=== PATIENT | male | born 1970 | race Caucasian/White ===

== ENCOUNTER 2017-04-20 18:18 | Emergency (ER) | payer BC ==
[2017-04-20 18:48] VITALS: BP 132/85
--- NOTE | 2017-04-20 18:57 | EDM.PDOC ---
ED HPI GENERAL MEDICAL PROBLEM - General Chief Complaint: General Stated Complaint: CHILLS/ILLNESS/CANCER PATIENT Time Seen by Provider: 04/20/17 18:56 Source of Information: Reports: Patient History Limitations: Reports: No Limitations - History of Present Illness INITIAL COMMENTS - FREE TEXT/NARRATIVE: Sx since yesterday. no other c/o - Related Data Allergies Allergy/AdvReac Type Severity Reaction Status Date / Time levofloxacin Allergy Rash Verified 04/20/17 18:41 Home Meds: Home Meds . [No Known Home Meds] 04/20/17 [History] Past Medical History HEENT History: Reports: Impaired Vision Other HEENT History: wears glasses Cardiovascular History: Reports: None Respiratory History: Reports: None Gastrointestinal History: Reports: None Genitourinary History: Reports: UTI, Recurrent Musculoskeletal History: Reports: None Neurological History: Reports: None Psychiatric History: Reports: None Endocrine/Metabolic History: Reports: None Hematologic History: Reports: None Immunologic History: Reports: None Oncologic (Cancer) History: Reports: Lymphoma Dermatologic History: Reports: None - Infectious Disease History Infectious Disease History: Reports: None - Past Surgical History Head Surgeries/Procedures: Reports: None Social & Family History - Family History Family Medical History: Noncontributory - Tobacco Use Smoking Status *Q: Never Smoker Second Hand Smoke Exposure: No - Caffeine Use Caffeine Use: Reports: Soda - Alcohol Use Days Per Week of Alcohol Use: 1 Number of Drinks Per Day: 1 Total Drinks Per Week: 1 - Recreational Drug Use Recreational Drug Use: No ED ROS GENERAL - Review of Systems Review Of Systems: ROS reveals no pertinent complaints other than HPI. ED EXAM, GENERAL - Physical Exam Exam: See Below Exam Limited By: No Limitations General Appearance: Alert, WD/WN, No Apparent Distress Ears: Normal External Exam, Normal Canal, Hearing Grossly Normal, Normal TMs Nose: Normal Inspection Throat/Mouth: Inflammation Head: Atraumatic Neck: Non-Tender, Full Range of Motion Respiratory/Chest: No Respiratory Distress, Lungs Clear, Normal Breath Sounds, No Accessory Muscle Use Cardiovascular: Regular Rate, Rhythm GI/Abdominal: Soft, Non-Tender Neurological: Alert, Oriented, Normal Cognition, Normal Gait, No Motor/Sensory Deficits Psychiatric: Normal Affect, Normal Mood Skin Exam: Warm, Dry Lymphatic: No Adenopathy Course - Vital Signs Last Recorded V/S: Last Vital Signs Temp 35.6 C 04/20/17 18:47 Pulse 84 04/20/17 18:47 Resp 18 04/20/17 18:47 BP 132/85 04/20/17 18:47 Pulse Ox 98 04/20/17 18:47 - Orders/Labs/Meds Orders: Active Orders 24 hr Category Date Time Status CULTURE BLOOD [BC] Stat Lab 04/20/17 19:05 Received CULTURE STREP A CONFIRMATION [] Stat Lab 04/20/17 18:53 Results STREP SCRN A RAPID W CULT CONF [] Stat Lab 04/20/17 18:53 Results Labs: Laboratory Tests 04/20/17 04/20/17 04/20/17 Range/Units 19:05 19:05 19:05 WBC 5.0 (5.0-10.0) 10^3/uL RBC 4.92 (4.6-6.2) 10^6/uL Hgb 15.5 (14.0-18.0) g/dL Hct 42.4 (40.0-54.0) % MCV 86.2 (80-100) fL MCH 31.5 (27.0-34.0) pg MCHC 36.6 H (33.0-35.0) g/dL Plt Count 157 (150-450) 10^3/uL Neut % (Auto) 75.8 H (42.2-75.2) % Lymph % (Auto) 7.1 L (20.5-50.1) % [place] % (Auto) 15.1 H (2-8) % Eos % (Auto) 1.6 (1.0-3.0) % Baso % (Auto) 0.4 (0.0-1.0) % Add Manual Diff Yes Neutrophils % (Manual) 76 % Band Neutrophils % 4 % Lymphocytes % (Manual) 5 % Atypical Lymphs % 0 % Monocytes % (Manual) 9 % Eosinophils % (Manual) 6 % Basophils % (Manual) 0 Sodium 141 (135-145) mmol/L Potassium 4.2 (3.6-5.0) mmol/L Chloride 108 (101-111) mmol/L Carbon Dioxide 23.0 (21.0-31.0) mmol/L Anion Gap 14.2 BUN 16 (7-18) mg/dL Creatinine 1.3 (0.6-1.3) mg/dL Est Cr Clr Drug Dosing TNP Estimated GFR (MDRD) 59 BUN/Creatinine Ratio 12.30 Glucose 131 H (74-105) mg/dL Lactic Acid 1.4 (0.5-2.2) mmol/L Calcium 9.1 (8.4-10.2) mg/dl Total Bilirubin 0.9 (0.2-1.0) mg/dL AST 30 (10-42) IU/L ALT 39 (10-60) IU/L Alkaline Phosphatase 88 (42-121) IU/L Total Protein 6.5 L (6.7-8.2) g/dl Albumin 4.2 (3.2-5.5) g/dl Globulin 2.3 Albumin/Globulin Ratio 1.83 Meds: Medications Discontinued Medications Generic Name Dose Route Start Last Admin Trade Name Santiagoq PRN Reason Stop Dose Admin Amoxicillin 500 mg 04/20/17 20:08 Amoxil PO 04/20/17 20:09 ONETIME ONE - Re-Assessments/Exams Free Text/Narrative Re-Assessment/Exam: 04/20/17 20:09 results discussed with Pt who states last time this occurred was given ABX. Departure - Departure Time of Disposition: 20:10 Disposition: Home, Self-Care 01 Condition: Good Clinical Impression: Cancer, Post chemo evaluation - Discharge Information Forms: ED Department Discharge Additional Instructions: 1) rest 2) continue tylenol or motrin for fever 3) notify [facility] in the morning 4) recheck if there is changes or concerns rx given; amoxil 250mg tid x 30 - My Orders Last 24 Hours: My Active Orders 04/20/17 18:53 CULTURE STREP A CONFIRMATION [RM] Stat STREP SCRN A RAPID W CULT CONF [RM] Stat 04/20/17 19:05 CULTURE BLOOD [BC] Stat - Assessment/Plan Last 24 Hours: My Active Orders 04/20/17 18:53 CULTURE STREP A CONFIRMATION [RM] Stat STREP SCRN A RAPID W CULT CONF [RM] Stat 04/20/17 19:05 CULTURE BLOOD [BC] Stat
[2017-04-20 19:30] LABS: CHLORIDE,CL 108 mmol/L (101-111); SODIUM,NA 141 mmol/L (135-145)
[2017-04-20] MEDS ORDERED: Amoxicillin 500 MG Cap PO ONE (20:08)
== END 2017-04-20 20:21 | disposition home or self-care (01) ==
LOC: DL.ED 18:18
DX: C85.90 Non-Hodgkin lymphoma, unspecified, unspecified site (principal)
CPT/HCPCS: 36415; 80053; 83605; 85025; 87040; 87081; 87430; 99283; A9270

== ENCOUNTER 2017-05-18 22:06 | Emergency (ER) | payer BC ==
[2017-05-18 22:13] VITALS: BP 130/78
--- NOTE | 2017-05-18 23:45 | EDM.PDOC ---
[id number] 2d CHILLS AND FEVER, HAS LYMPHOMA, [id number] Time Seen by Provider: 05/18/17 22:20 History Limitations: Reports: No Limitations - History of Present Illness INITIAL COMMENTS - FREE TEXT/NARRATIVE: cold sx since Monday, worsening cough congestion, Febrile tonight 100.9, Hx lymphoma, last chemo 5 weeks ago. Decreased appetite .Patient contacted primary oncologist at [facility] and was told to go to ED if temp continued. - Related Data Allergies Allergy/AdvReac Type Severity Reaction Status Date / Time levofloxacin Allergy Rash Verified 05/18/17 22:11 Home Meds: Home Meds . [No Known Home Meds] 04/20/17 [History] Past Medical History HEENT History: Reports: Impaired Vision Other HEENT History: wears glasses Cardiovascular History: Reports: None Respiratory History: Reports: None Gastrointestinal History: Reports: None Genitourinary History: Reports: UTI, Recurrent Musculoskeletal History: Reports: None Neurological History: Reports: None Psychiatric History: Reports: None Endocrine/Metabolic History: Reports: None Hematologic History: Reports: None Immunologic History: Reports: None Oncologic (Cancer) History: Reports: Lymphoma Dermatologic History: Reports: None - Infectious Disease History Infectious Disease History: Reports: None - Past Surgical History Head Surgeries/Procedures: Reports: None Social & Family History - Family History Family Medical History: Noncontributory - Tobacco Use Smoking Status *Q: Never Smoker Second Hand Smoke Exposure: No - Caffeine Use Caffeine Use: Reports: Soda - Alcohol Use Days Per Week of Alcohol Use: 1 Number of Drinks Per Day: 1 Total Drinks Per Week: 1 - Recreational Drug Use Recreational Drug Use: No ED ROS ENT - Review of Systems Review Of Systems: See Below Constitutional: Reports: Fever, Chills, Fatigue HEENT: Reports: Sinus Problem, Throat Pain Respiratory: Reports: Cough. Denies: Shortness of Breath Cardiovascular: Reports: No Symptoms GI/Abdominal: Reports: No Symptoms : Reports: No Symptoms Musculoskeletal: Reports: No Symptoms Skin: Reports: No Symptoms Neurological: Reports: No Symptoms ED EXAM, ENT - Physical Exam Exam: See Below Exam Limited By: No Limitations General Appearance: Alert, Mild Distress Eye Exam: Bilateral Eye: EOMI Ears: Normal External Exam, Normal TMs. No: TM Fluid Nose: Normal Inspection, Normal Mucousa. No: Nasal Tenderness Mouth/Throat: Normal Inspection, Normal Gums, Normal Oropharynx, Pharyngeal Erythema Head: Atraumatic, Normocephalic, Scalp Swelling Respiratory/Chest: No Respiratory Distress, Lungs Clear, Normal Breath Sounds Cardiovascular: Normal Peripheral Pulses, Regular Rate, Rhythm, No Edema GI/Abdominal: Normal Bowel Sounds Back: Normal Inspection Neurological: Alert, Oriented, Normal Cognition, Normal Gait, Normal Reflexes Psychiatric: Normal Affect, Normal Mood Skin: Warm, Dry, Intact, Normal Color, No Rash Course - Vital Signs Last Recorded V/S: Last Vital Signs Temp 99.8 F 05/18/17 22:12 Pulse 100 05/18/17 22:12 Resp 21 H 05/18/17 22:12 BP 130/78 05/18/17 22:12 Pulse Ox 97 05/18/17 22:12 - Orders/Labs/Meds Orders: Active Orders 24 hr Category Date Time Status CULTURE BLOOD [BC] Stat Lab 05/18/17 22:20 Received CULTURE BLOOD [BC] Stat Lab 05/18/17 22:25 Results CULTURE URINE [RM] Stat Lab 05/18/17 22:29 Received Blood Culture x2 Reflex Set [OM.PC] Stat Oth 05/18/17 22:09 Ordered Labs: Laboratory Tests 05/18/17 05/18/17 05/18/17 Range/Units 22:20 22:20 22:20 WBC 8.1 (5.0-10.0) 10^3/uL RBC 4.66 (4.6-6.2) 10^6/uL Hgb 14.7 (14.0-18.0) g/dL Hct 40.5 (40.0-54.0) % MCV 86.9 (80-100) fL MCH 31.5 (27.0-34.0) pg MCHC 36.3 H (33.0-35.0) g/dL Plt Count 172 (150-450) 10^3/uL Neut % (Auto) 70.4 (42.2-75.2) % Lymph % (Auto) 9.6 L (20.5-50.1) % [place] % (Auto) 17.6 H (2-8) % Eos % (Auto) 2.2 (1.0-3.0) % Baso % (Auto) 0.2 (0.0-1.0) % Sodium 141 (135-145) mmol/L Potassium 3.6 (3.6-5.0) mmol/L Chloride 106 (101-111) mmol/L Carbon Dioxide 24.0 (21.0-31.0) mmol/L Anion Gap 14.6 BUN 13 (7-18) mg/dL Creatinine 1.4 H (0.6-1.3) mg/dL Est Cr Clr Drug Dosing 72.92 mL/min Estimated GFR (MDRD) 54 BUN/Creatinine Ratio 9.28 Glucose 117 H (74-105) mg/dL Lactic Acid 0.9 (0.5-2.2) mmol/L Calcium 9.1 (8.4-10.2) mg/dl Total Bilirubin 1.1 H (0.2-1.0) mg/dL AST 87 H (10-42) IU/L ALT 89 H (10-60) IU/L Alkaline Phosphatase 151 H (42-121) IU/L Total Protein 7.1 (6.7-8.2) g/dl Albumin 4.2 (3.2-5.5) g/dl Globulin 2.9 Albumin/Globulin Ratio 1.45 Urine Color (YELLOW) Urine Appearance (CLEAR) Urine pH (5.0-9.0) Ur Specific [place] (1.005-1.030) Urine Protein (NEGATIVE) Urine Glucose (UA) (NEGATIVE) Urine Ketones (NEGATIVE) Urine Occult Blood (NEGATIVE) Urine Nitrite (NEGATIVE) Urine Bilirubin (NEGATIVE) Urine Urobilinogen (0.2-1.0) mg/dL Ur Leukocyte Esterase (NEGATIVE) Urine RBC /HPF Urine WBC (0-5/HPF) /HPF Ur Epithelial Cells /HPF Urine Bacteria (0-FEW/HPF) /HPF // Range/Units 22:29 WBC (5.0-10.0) 10^3/uL RBC (4.6-6.2) 10^6/uL Hgb (14.0-18.0) g/dL Hct (40.0-54.0) % MCV (80-100) fL MCH (27.0-34.0) pg MCHC (33.0-35.0) g/dL Plt Count (150-450) 10^3/uL Neut % (Auto) (42.2-75.2) % Lymph % (Auto) (20.5-50.1) % [place] % (Auto) (2-8) % Eos % (Auto) (1.0-3.0) % Baso % (Auto) (0.0-1.0) % Sodium (135-145) mmol/L Potassium (3.6-5.0) mmol/L Chloride (101-111) mmol/L Carbon Dioxide (21.0-31.0) mmol/L Anion Gap BUN (7-18) mg/dL Creatinine (0.6-1.3) mg/dL Est Cr Clr Drug Dosing mL/min Estimated GFR (MDRD) BUN/Creatinine Ratio Glucose (74-105) mg/dL Lactic Acid (0.5-2.2) mmol/L Calcium (8.4-10.2) mg/dl Total Bilirubin (0.2-1.0) mg/dL AST (10-42) IU/L ALT (10-60) IU/L Alkaline Phosphatase (42-121) IU/L Total Protein (6.7-8.2) g/dl Albumin (3.2-5.5) g/dl Globulin Albumin/Globulin Ratio Urine Color Yellow (YELLOW) Urine Appearance Clear (CLEAR) Urine pH 7.0 (5.0-9.0) Ur Specific [place] 1.015 (1.005-1.030) Urine Protein Negative (NEGATIVE) Urine Glucose (UA) Negative (NEGATIVE) Urine Ketones Trace H (NEGATIVE) Urine Occult Blood Negative (NEGATIVE) Urine Nitrite Negative (NEGATIVE) Urine Bilirubin Negative (NEGATIVE) Urine Urobilinogen 1.0 (0.2-1.0) mg/dL Ur Leukocyte Esterase Negative (NEGATIVE) Urine RBC 0-5 /HPF Urine WBC 0-5 (0-5/HPF) /HPF Ur Epithelial Cells Few /HPF Urine Bacteria Few (0-FEW/HPF) /HPF Meds: Medications Discontinued Medications Generic Name Dose Route Start Last Admin Trade Name Freq PRN Reason Stop Dose Admin Amoxicillin/Clavulanate Potassium Confirm 05/18/17 23:48 05/19/17 00:14 Augmentin 875 Mg/125 Mg Administered 05/18/17 23:49 Not Given Dose 2 tab .ROUTE .STK-MED ONE - Radiology Interpretation Free Text/Narrative:: CXR possible atelectasis vs infiltrate Departure - Departure Time of Disposition: 23:40 Disposition: Home, Self-Care 01 Condition: Fair Clinical Impression: URI, acute, Immunocompromised patient Sinusitis Qualifiers: Sinusitis location: unspecified location Chronicity: unspecified Qualified Code (s): J32.9 - Chronic sinusitis, unspecified Lymphoma Qualifiers: Lymphoma type: unspecified type Lymphoma site: unspecified region Qualified Code(s): C85.90 - Non-Hodgkin lymphoma, unspecified, unspecified site - Discharge Information Referrals: PCP,None [Primary Care Provider] - Forms: ED Department Discharge Additional Instructions: push fluids rest tylenol for fever greater than 101 Augmentin 875/125 one twice daily for one week Continue Muccinex Follow up with PCP and oncologist in am. - My Orders Last 24 Hours: My Active Orders 05/18/17 22:09 Blood Culture x2 Reflex Set [OM.PC] Stat 05/18/17 22:20 CULTURE BLOOD [BC] Stat 05/18/17 22:25 CULTURE BLOOD [BC] Stat 05/18/17 22:29 CULTURE URINE [RM] Stat - Assessment/Plan Last 24 Hours: My Active Orders 05/18/17 22:09 Blood Culture x2 Reflex Set [OM.PC] Stat 05/18/17 22:20 CULTURE BLOOD [BC] Stat 05/18/17 22:25 CULTURE BLOOD [BC] Stat 05/18/17 22:29 CULTURE URINE [RM] Stat
[2017-05-18] MEDS ORDERED: Amoxicillin/Clavulanate K 875-125 MG Tab PO ONE (23:48)
[2017-05-18] MEDS ORDERED: Amoxicillin/Clavulanate K 875-125 MG Tab ONE (23:48)
== END 2017-05-18 23:55 | disposition home or self-care (01) ==
LOC: DL.ED 22:06
DX: J06.9 Acute upper respiratory infection, unspecified (principal); D89.9 Disorder involving the immune mechanism, unspecified; Z88.1 Allergy status to other antibiotic agents
CPT/HCPCS: 36415; 71020; 80053; 81001; 83605; 85025; 87040; 87081; 87086; 87430; 99284; A9270

== ENCOUNTER 2018-01-27 14:23 | Emergency (ER) | payer BC ==
[2018-01-27 14:35] VITALS: BP 134/81
--- NOTE | 2018-01-27 16:14 | EDM.PDOC ---
Scribed by Eula Maurer 01/27/18 1513 for Talia Hansen NP ED HPI GENERAL MEDICAL PROBLEM - General Chief Complaint: Respiratory Problem Stated Complaint: cold [id number] Time Seen by Provider: 01/27/18 14:53 Source of Information: Reports: Patient, RN, RN Notes Reviewed History Limitations: Reports: No Limitations - History of Present Illness INITIAL COMMENTS - FREE TEXT/NARRATIVE: Patient presents to ER with complaint of sore throat, cough, headaches and congestion. He states he has had most symptoms all winter. He has had a sore throat since . He has had no body aches, chest pain, shortness of breath , fever, chills, nausea, vomiting and diarrhea. Patient has a history of lymphoma. He saw Dr. Beaver 1 month ago and given Claritin and antibiotics. Duration: Getting Worse Location: Reports: Generalized Quality: Reports: Ache Severity: Mild Improves with: Reports: None Worsens with: Reports: None Associated Symptoms: Reports: No Other Symptoms Throat Pain Score (Numeric/FACES): 4 - Related Data Allergies Allergy/AdvReac Type Severity Reaction Status Date / Time levofloxacin Allergy Rash Verified 01/27/18 14:34 Home Meds: Home Meds Loratadine [Claritin] 10 mg PO DAILY 01/27/18 [History] Past Medical History HEENT History: Reports: Impaired Vision Other HEENT History: wears glasses Cardiovascular History: Reports: None Respiratory History: Reports: None Gastrointestinal History: Reports: None Genitourinary History: Reports: UTI, Recurrent Musculoskeletal History: Reports: None Neurological History: Reports: None Psychiatric History: Reports: None Endocrine/Metabolic History: Reports: None Hematologic History: Reports: None Immunologic History: Reports: None Oncologic (Cancer) History: Reports: Lymphoma Dermatologic History: Reports: None - Infectious Disease History Infectious Disease History: Reports: None - Past Surgical History Head Surgeries/Procedures: Reports: None Social & Family History - Family History Family Medical History: Noncontributory - Tobacco Use Smoking Status *Q: Never Smoker Second Hand Smoke Exposure: No - Caffeine Use Caffeine Use: Reports: Soda - Alcohol Use Days Per Week of Alcohol Use: 1 Number of Drinks Per Day: 1 Total Drinks Per Week: 1 - Recreational Drug Use Recreational Drug Use: No ED ROS GENERAL - Review of Systems Review Of Systems: ROS reveals no pertinent complaints other than HPI. ED EXAM, GENERAL - Physical Exam Exam: See Below Exam Limited By: No Limitations General Appearance: Alert, WD/WN, No Apparent Distress Eye Exam: Bilateral Eye: Normal Inspection Ears: Normal External Exam, Normal Canal, Hearing Grossly Normal, Normal TMs Nose: Normal Inspection, Normal Mucosa, No Blood Throat/Mouth: Other (tonsils +2-3. ) Neck: Normal Inspection Respiratory/Chest: No Respiratory Distress, Lungs Clear, Normal Breath Sounds, No Accessory Muscle Use, Chest Non-Tender Cardiovascular: Normal Peripheral Pulses, Regular Rate, Rhythm, No Edema, No Gallop, No JVD, No Murmur, No Rub GI/Abdominal: Normal Bowel Sounds, Soft, Non-Tender, No Organomegaly, No Distention, No Abnormal Bruit, No Mass (Male) Exam: Deferred Rectal (Males) Exam: Deferred Back Exam: Normal Inspection, Full Range of Motion, NT Extremities: Normal Inspection, Normal Range of Motion, Non-Tender, Normal Capillary Refill, No Pedal Edema Neurological: Alert, Oriented, CN II-XII Intact, Normal Cognition, Normal Gait, Normal Reflexes, No Motor/Sensory Deficits Psychiatric: Normal Affect, Normal Mood Skin Exam: Warm, Dry, Intact, Normal Color, No Rash Lymphatic: No Adenopathy Course - Vital Signs Last Recorded V/S: Last Vital Signs Temp 95.8 F 01/27/18 14:29 Pulse 92 01/27/18 14:29 Resp 16 01/27/18 14:29 BP 134/81 01/27/18 14:29 Pulse Ox 96 01/27/18 14:29 - Orders/Labs/Meds Orders: Active Orders 24 hr Category Date Time Status CULTURE STREP A CONFIRMATION [] Stat Lab 01/27/18 14:40 Results STREP SCRN A RAPID W CULT CONF [] Stat Lab 01/27/18 14:40 Results Labs: Rapid strep: Negative. Departure - Departure Time of Disposition: 15:11 Disposition: Home, Self-Care 01 Condition: Fair Clinical Impression: Tonsillitis Sinusitis Qualifiers: Sinusitis location: unspecified location Chronicity: acute Recurrence: not specified as recurrent Qualified Code(s): J01.90 - Acute sinusitis, unspecified Pharyngitis Qualifiers: Pharyngitis/tonsillitis etiology: unspecified etiology Qualified Code(s): J02.9 - Acute pharyngitis, unspecified - Discharge Information Instructions: Tonsillitis, [id number], Sinusitis, Adult, [id number], Sinus Headache, [id number], Pharyngitis, [id number] Forms: ED Department Discharge Additional Instructions: RX: Benzonatate (tessalon perles), Clindamycin, Doxycycline Drink plenty of fluids Follow up with your primary care facility next week - My Orders Last 24 Hours: My Active Orders 01/27/18 14:40 CULTURE STREP A CONFIRMATION [RM] Stat STREP SCRN A RAPID W CULT CONF [RM] Stat - Assessment/Plan Last 24 Hours: My Active Orders 01/27/18 14:40 CULTURE STREP A CONFIRMATION [RM] Stat STREP SCRN A RAPID W CULT CONF [RM] Stat I have read and agree with the documentation that has been completed regarding this visit. By signing this record, I attest that the documentation was completed in my physical presence and is an accurate record of the encounter.
== END 2018-01-27 15:19 | disposition home or self-care (01) ==
LOC: DL.ED 14:23
DX: J03.90 Acute tonsillitis, unspecified (principal); J01.90 Acute sinusitis, unspecified; Z88.1 Allergy status to other antibiotic agents
CPT/HCPCS: 87081; 87430; 99283

== ENCOUNTER 2018-12-24 11:07 | Emergency (ER) | payer BC ==
[2018-12-24 11:26] VITALS: BP 116/64
--- NOTE | 2018-12-24 12:02 | EDM.PDOC ---
ED HPI GENERAL MEDICAL PROBLEM - General Chief Complaint: ENT Problem Stated Complaint: FEVER [id number] Time Seen by Provider: 12/24/18 11:50 Source of Information: Reports: Patient History Limitations: Reports: No Limitations - History of Present Illness INITIAL COMMENTS - FREE TEXT/NARRATIVE: This 48 yo male patient reports to the ED with a sore throat, body aches, and cough (greenish sputum) that started on 12/20/18. The patient reports he has been taking [id number] medications for temporary symptom relief. The patient has not been seen in the clinic for these symptoms at this time (no appointments available). The patient has a history of lymphoma and was at the [facility] last week (got several immunizations). Onset Date: 12/20/18 Duration: Constant, Getting Worse Location: Reports: Head, Neck, Chest Quality: Reports: Other Severity: Moderate Improves with: Reports: None Worsens with: Reports: None Associated Symptoms: Reports: cough w sputum, Fever/Chills, Other (body aches) Treatments TUB TENDER: Reports: Acetaminophen - Related Data Allergies Allergy/AdvReac Type Severity Reaction Status Date / Time levofloxacin Allergy Rash Verified 12/24/18 11:22 Home Meds: Home Meds Loratadine [Claritin] 10 mg PO PRN 01/27/18 [History] Past Medical History HEENT History: Reports: Impaired Vision Other HEENT History: wears glasses Cardiovascular History: Reports: None Respiratory History: Reports: None Gastrointestinal History: Reports: None Genitourinary History: Reports: UTI, Recurrent Musculoskeletal History: Reports: None Neurological History: Reports: None Psychiatric History: Reports: None Endocrine/Metabolic History: Reports: None Hematologic History: Reports: None Immunologic History: Reports: None Oncologic (Cancer) History: Reports: Lymphoma Dermatologic History: Reports: None - Infectious Disease History Infectious Disease History: Reports: None - Past Surgical History Head Surgeries/Procedures: Reports: None Social & Family History - Family History Family Medical History: Noncontributory - Tobacco Use Smoking Status *Q: Never Smoker Second Hand Smoke Exposure: No - Caffeine Use Caffeine Use: Reports: None - Recreational Drug Use Recreational Drug Use: No ED ROS GENERAL - Review of Systems Review Of Systems: ROS reveals no pertinent complaints other than HPI. ED EXAM, GENERAL - Physical Exam Exam: See Below Exam Limited By: No Limitations General Appearance: Alert, WD/WN, Moderate Distress Eye Exam: Bilateral Eye: EOMI, Normal Inspection, PERRL Ears: Normal External Exam, Normal Canal, Hearing Grossly Normal, Normal TMs Nose: Normal Inspection, Normal Mucosa, No Blood, Clear Rhinorrhea Throat/Mouth: Normal Lips, Normal Teeth, Normal Voice, No Airway Compromise, Other (Tonsils are erythematous) Head: Atraumatic, Normocephalic Neck: Normal Inspection, Supple, Full Range of Motion Respiratory/Chest: No Respiratory Distress, Lungs Clear, Normal Breath Sounds, No Accessory Muscle Use, Chest Non-Tender Cardiovascular: Normal Peripheral Pulses, Regular Rate, Rhythm, No Edema, No Gallop, No JVD, No Murmur, No Rub GI/Abdominal: Normal Bowel Sounds, Soft, Non-Tender, No Organomegaly, No Distention, No Abnormal Bruit, No Mass (Male) Exam: Deferred Rectal (Males) Exam: Deferred Back Exam: Normal Inspection, Full Range of Motion, NT Extremities: Normal Inspection, Normal Range of Motion, Non-Tender, Normal Capillary Refill, No Pedal Edema Neurological: Alert, Oriented, CN II-XII Intact, Normal Cognition, Normal Gait, Normal Reflexes, No Motor/Sensory Deficits Psychiatric: Normal Affect, Normal Mood Skin Exam: Warm, Dry, Intact, Normal Color, No Rash Lymphatic: No Adenopathy Course - Vital Signs Last Recorded V/S: Last Vital Signs Temp 37.0 C 12/24/18 11:22 Pulse 98 12/24/18 11:22 Resp 20 12/24/18 11:22 BP 116/64 12/24/18 11:22 Pulse Ox 97 12/24/18 11:22 - Orders/Labs/Meds Orders: Active Orders 24 hr Category Date Time Status CULTURE BLOOD [BC] Stat Lab 12/24/18 11:54 Received CULTURE STREP A CONFIRMATION [RM] Stat Lab 12/24/18 11:33 Results STREP SCRN A RAPID W CULT CONF [RM] Stat Lab 12/24/18 11:33 Results Blood Culture x2 Reflex Set [OM.PC] Stat Oth 12/24/18 11:45 Ordered Labs: Laboratory Tests 12/24/18 12/24/18 12/24/18 Range/Units 11:54 11:54 11:54 WBC 5.3 (5.0-10.0) 10^3/uL RBC 5.08 (4.6-6.2) 10^6/uL Hgb 15.6 (14.0-18.0) g/dL Hct 44.2 (40.0-54.0) % MCV 87.0 (80-100) fL MCH 30.7 (27.0-34.0) pg MCHC 35.3 H (33.0-35.0) g/dL RDW Not Reportable RDW Coeff of Sheree Not Reportable Plt Count 126 L (150-450) 10^3/uL MPV Not Reportable Neutrophils % (Manual) 78 H (42-75) % Band Neutrophils % 3 % Lymphocytes % (Manual) 11 L (20-50) % Monocytes % (Manual) 6 (2-8) % Eosinophils % (Manual) 2 (1-3) % Sodium 136 (135-145) mmol/L Potassium 4.3 (3.6-5.0) mmol/L Chloride 100 L (101-111) mmol/L Carbon Dioxide 25.0 (21.0-31.0) mmol/L Anion Gap 15.3 BUN 10 (7-18) mg/dL Creatinine 1.2 (0.6-1.3) mg/dL Est Cr Clr Drug Dosing 83.23 mL/min Estimated GFR (MDRD) > 60 BUN/Creatinine Ratio 8.33 Glucose 111 H (74-105) mg/dL Lactic Acid 1.1 (0.5-2.2) mmol/L Calcium 8.6 (8.4-10.2) mg/dl Total Bilirubin 1.0 (0.2-1.0) mg/dL AST 41 (10-42) IU/L ALT 58 (10-60) IU/L Alkaline Phosphatase 101 (42-121) IU/L Total Protein 6.7 (6.7-8.2) g/dl Albumin 3.9 (3.2-5.5) g/dl Globulin 2.8 Albumin/Globulin Ratio 1.39 Departure - Departure Time of Disposition: 12:40 Disposition: Home, Self-Care 01 Condition: Fair Clinical Impression: Bronchitis - Discharge Information *PRESCRIPTION DRUG MONITORING PROGRAM REVIEWED*: Not Applicable *COPY OF PRESCRIPTION DRUG MONITORING REPORT IN PATIENT ROBERT: Not Applicable Instructions: Upper Respiratory Infection, Adult, Imne-et-Vacd Forms: ED Department Discharge Care Plan Goals: The patient was advised of the examination and lab results during the visit. The patient was discharged with a script for Augmentin (875/125) to take 1 by mouth 2 times per day for 10 days. If the patient has any additional symptoms or concerns, the patient should either visit his primary care facility or return to the emergency department. - My Orders Last 24 Hours: My Active Orders 12/24/18 11:33 CULTURE STREP A CONFIRMATION [RM] Stat STREP SCRN A RAPID W CULT CONF [RM] Stat 12/24/18 11:45 Blood Culture x2 Reflex Set [OM.PC] Stat 12/24/18 11:54 CULTURE BLOOD [BC] Stat - Assessment/Plan Last 24 Hours: My Active Orders 12/24/18 11:33 CULTURE STREP A CONFIRMATION [RM] Stat STREP SCRN A RAPID W CULT CONF [RM] Stat 12/24/18 11:45 Blood Culture x2 Reflex Set [OM.PC] Stat 12/24/18 11:54 CULTURE BLOOD [BC] Stat
[2018-12-24 12:25] LABS: ANION GAP 15.3; CHLORIDE,CL 100 mmol/L (101-111); SODIUM,NA 136 mmol/L (135-145)
== END 2018-12-24 12:54 | disposition home or self-care (01) ==
LOC: DL.ED 11:07
DX: J40 Bronchitis, not specified as acute or chronic (principal); Z88.1 Allergy status to other antibiotic agents; Z87.440 Personal history of urinary (tract) infections
CPT/HCPCS: 36415; 80053; 83605; 85007; 85027; 87040; 87081; 87430; 87804; 99284